=== PATIENT | male | born 1970 | race Two or more races ===

== ENCOUNTER → 2021-07-24 | Day surgery (SDC) | payer OTHER ==
[~2021-07-24] MED LIST: KETO10TA2 PO; MIRALAX17 GM PO; NEURONTIN300 MG PO; TYLENOL ARTHRI650 MG PO; ULTRAM50 MG PO
== END | disposition home or self-care (01) ==
LOC: ADM 07-01 08:15 → CIR.AMB 07-03 08:15
PROVIDERS: ATTEND Surgery
DX: K40.20 Bilateral inguinal hernia, without obstruction or gangrene, not specified as recurrent (principal); K42.9 Umbilical hernia without obstruction or gangrene; E78.00 Pure hypercholesterolemia, unspecified; Z87.891 Personal history of nicotine dependence; G43.909 Migraine, unspecified, not intractable, without status migrainosus; Z20.822 Contact with and (suspected) exposure to COVID-19
CPT/HCPCS: 49650; 49652; C1781